=== PATIENT | female | born 1975 | race Caucasian/White ===

== ENCOUNTER → 2016-07-09 | Day surgery (SDC) | payer BC, OTHER ==
--- NOTE | 2016-07-06 11:31 | MH ---
cc: KIMBERLYN TAYLOR,MANFRED HUBBARD,KIMBERLY MULTANI,KASSIE Man MD DATE OF ADMISSION 07/09/2016 DATE OF 1975 REASON FOR ADMISSION Endometrial ablation HISTORY OF PRESENT ILLNESS The patient is a 40-year-old white female 1, para 1 status post prior tubal ligation who is having issues with dysfunctional bleeding unresponsive to medicinal therapy. Periods are once a month and increasingly heavy and painful and is having significant impact on her quality of life was wants to proceed with endometrial ablation. PAST MEDICAL HISTORY Negative for heart, lung, liver disease, hypertension, diabetes, or stroke. PAST SURGICAL HISTORY Tubal ligation GYNECOLOGIC HISTORY No STD's or abnormal Pap smears. Most recent Pap smear normal except for bacterial vaginosis which was treated. OBSTETRICAL HISTORY One vaginal delivery. FAMILY HISTORY Noncontributory SOCIAL HISTORY Does not smokes, use alcohol or drugs. Also works with [employer] ALLERGIES None REVIEW OF SYSTEMS As above. No chest orthopnea, PND. No nausea, vomiting, fever or chills. No vaginal bleeding or discharge except as noted above. The remainder of a 14-point review negative. PHYSICAL EXAM On her exam, she is afebrile, vital signs stable blood pressure is 120/70, height 5 foot 5, weight 167, BMI is 27.8. Patient is alert and oriented no acute stress. No sign of cognitive dysfunction or depression. HEENT: Within normal limits. NECK: Supple. No JVD. CHEST: Clear. HEART: Regular rate and rhythm. ABDOMEN: Soft and nontender. No hepatosplenomegaly. No CVA tenderness. PELVIC: Will be detailed under anesthesia. EXTREMITIES: Warm, skin without rashes. NEUROLOGIC: Nonfocal. No DVT signs. ASSESSMENT 1. Patient with dysfunctional bleeding unresponsive to medicinal therapy. The patient and I discussed options for management and treatment. At this point, she is a reasonable candidate for endometrial ablation. We discussed the risks, benefits and alternatives including damage to surrounding organs, bleeding, infection, failure rate of least 20% and the possibility of post tubal ablation syndrome with intermittent pelvic pain that may require further surgery in the future. 2. The patient has made an informed choice to proceed. Anticipate outpatient procedure. We will use DVT prophylaxis with sequential compression device and Ancef one gram for antibiotic prophylaxis. Anticipate outpatient procedure. MD GALE Crum/JEOVANY 11:11 AM 11:18 AM
[~2016-07-09] VITALS: Ht 165.1 cm; Wt 77.5 kg
[~2016-07-09] MED LIST: *ONDANSETRON 4 MG VIAL PERIprocedural Use ONLY ONE; ACETAMINOPHEN 1000 MG/100 ML VIAL IV ONE; DEXAMETHASONE SOD PHOS 4 MG/ML VIAL ONE; DO NOT ADM ANY ANTICOAGULANT DRUGS XX PRN; INSULIN HUMAN REGULAR 1,000 UNITS/10 ML VIAL SQ PRN; KETOROLAC TROMETHAMINE 10 MG TAB PO PRN; KETOROLAC TROMETHAMINE 30 MG/ML (IVP) VIAL IV PUSH PRN; KETOROLAC TROMETHAMINE 60 MG/2 ML (IM) VIAL IM ONE; KETOROLAC TROMETHAMINE 60 MG/2 ML (IM) VIAL IM PRN; LACTATED RINGER'S 1000 ML IV SCH; METOPROLOL TARTRATE 25 MG TAB PO PRN; METR500T10 PO; MIDAZOLAM HCL 2 MG/2 ML VIAL ONE; ONDANSETRON HCL 4 MG/2 ML VIAL IV PUSH ONE; ONDANSETRON HCL 4 MG/2 ML VIAL IV PUSH PRN; ONDANSETRON HCL 4 MG/2 ML VIAL ONE; PROPOFOL 200 MG/20 ML AMP IV ONE; SODIUM CHLORID 0.9% 500 ML IV SCH; TRIA37.53 PO; ZYRT10CA PO; ceFAZolin 1,000 MG/NS 100 ML IV SCH; fentaNYL CITRATE 250 MCG/5 ML AMP ONE
[2016-07-09 07:40] VITALS: BP 111/72; PULSE 76; RESP 16; TEMP 98.8; O2SAT 98
[2016-07-09 11:05] VITALS: BP 106/69; PULSE 76; RESP 16; TEMP 98.9; O2SAT 98
--- NOTE | 2016-07-13 20:20 | MP ---
cc: SU ALSTON,KIBMERLYN RAMIREZ,MANFRED GALARZA DATE OF SURGERY 07/09/2016 PREOPERATIVE DIAGNOSES Dysfunctional bleeding unresponsive to medicinal therapy. POSTOPERATIVE DIAGNOSES Dysfunctional bleeding unresponsive to medicinal therapy. PROCEDURE 1. Hysteroscopy D&C 2. Endometrial ablation with Novasure radiofrequency device. SURGEON Dr. Junior Bowden ANESTHESIA Laryngeal mask BLOOD LOSS 5 mL SPECIAL [employer] [place] staff x1 URINE OUTPUT 100 mL. FLUIDS 1000 mL crystalloid FINDINGS External genitalia normal. Pop Q score Az is - 1, Ap is -1, point C is -5, total vaginal length is 10, genital hiatus is six. Perineal body is four. Uterus is anteverted and flexed, approximately 10 weeks size. Uterus sounds to 8 cm. Endometrial cavity is unremarkable. Measurement for ablation device is length of cavity 5.5 cm and width is 3.8 cm SPECIMENS Endometrial curettage. COMPLICATIONS None DISPOSITION Recovery room stable COUNTS Needle and sponge correct. DRAINS None DISPOSITION Recovery room stable. PROPHYLAXIS Antibiotic prophylaxis Ancef 1 gram, DVT prophylaxis sequential compression device. TIME OUR PROCEDURE Per protocol INDICATIONS FOR PROCEDURE Patient with dysfunctional bleeding unresponsive to medicinal therapy. PROCEDURE IN DETAIL The patient was taken to the operating theater, identified, prepped and draped in fashion appropriate for planned procedure. She was in dorsal lithotomy position with careful attention paid to placement of the legs in stirrups to avoid undue stress to sensitive neurovascular structures. Above findings noted. documented. Bladder was drained. Cervix was grasped with a single-tooth tenaculum. Cervix required minimal dilation with graduated dilators. The uterus sounds to 8 cm. A 5 mm hysteroscope was placed using saline as distension medium. Above findings noted. There is lush endometrium, but no significant polyps or fibroids noted within the cavity. The curettage is obtained. Endometrial ablation device was placed without complication. Measurements as noted above. Computerized burn cycle 120 seconds uncomplicated. Repeat hysteroscopy showed a uniform burn pattern. No sign of any perforation of the uterine cavity. Procedure was concluded. The tenaculum was removed from the cervix. There was no undue bleeding from the tenaculum site. The patient reversed from anesthesia, taken to recovery room stable condition. Should patient have issues with continued bleeding, she would be a reasonable supracervical hysterectomy candidate as she has reasonably good apical support. MD GALE Crum/ /9:28 AM /7:06 PM
== END | disposition home or self-care (01) ==
LOC: HSDC 06:48
PROVIDERS: ATTEND Obstetrics & Gynecology Gynecology
DX: N93.8 Other specified abnormal uterine and vaginal bleeding (principal); N84.0 Polyp of corpus uteri
CPT/HCPCS: 00952; 58563; 88305; J0131; J0690; J1100; J1885; J2250; J2405; J3010; J7120

== ENCOUNTER 2017-01-28 04:15 | Emergency (ER) | payer BC, OTHER ==
[~2017-01-28] VITALS: Ht 162.6 cm; Wt 64.0 kg
[~2017-01-28 04:15] MED LIST changes: -*ONDANSETRON 4 MG VIAL PERIprocedural Use ONLY ONE; -ACETAMINOPHEN 1000 MG/100 ML VIAL IV ONE; -DEXAMETHASONE SOD PHOS 4 MG/ML VIAL ONE; -DO NOT ADM ANY ANTICOAGULANT DRUGS XX PRN; -INSULIN HUMAN REGULAR 1,000 UNITS/10 ML VIAL SQ PRN; -KETOROLAC TROMETHAMINE 10 MG TAB PO PRN; -KETOROLAC TROMETHAMINE 30 MG/ML (IVP) VIAL IV PUSH PRN; -KETOROLAC TROMETHAMINE 60 MG/2 ML (IM) VIAL IM ONE; -KETOROLAC TROMETHAMINE 60 MG/2 ML (IM) VIAL IM PRN; -LACTATED RINGER'S 1000 ML IV SCH; -METOPROLOL TARTRATE 25 MG TAB PO PRN; -MIDAZOLAM HCL 2 MG/2 ML VIAL ONE; -ONDANSETRON HCL 4 MG/2 ML VIAL IV PUSH ONE; -ONDANSETRON HCL 4 MG/2 ML VIAL IV PUSH PRN; -ONDANSETRON HCL 4 MG/2 ML VIAL ONE; -PROPOFOL 200 MG/20 ML AMP IV ONE; -SODIUM CHLORID 0.9% 500 ML IV SCH; -ceFAZolin 1,000 MG/NS 100 ML IV SCH; -fentaNYL CITRATE 250 MCG/5 ML AMP ONE
[2017-01-28 04:16] VITALS: BP 136/79; PULSE 75; RESP 16; TEMP 97.8; O2SAT 98
[2017-01-28] MEDS ORDERED: PRED20 PO (04:41)
[2017-01-28] MEDS ORDERED: HYDR-3533 PO (04:41)
[2017-01-28] MEDS ORDERED: predniSONE 20 MG TAB PO ONE (04:45)
--- NOTE | 2017-01-28 04:48 | PD ---
HPI Chief Complaint: Injury Time Seen by Provider: 04:23 Travel History International Travel<30 days: No Contact w/Intl Traveler<30days: No Traveled to known affect area: No History of Present Illness HPI 41-year-old [id number] white female presents to emergency Department with complaints of volar right wrist pain. She states that over the last 24 hours she's had progressive worsening pain. She states the pain radiates up into her elbow and down into her hand. The pain is worsened by flexion of the wrist. She states that even moving her fingers hurts. The patient states that she is able to extend her wrist but this is referred pain to the volar wrist. She states that her hand feels cool but denies any true temperature changes. Patient denies any trauma. No recent illness. No numbness. 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 No prior injury. No alleviating factors. PFSH Past Medical History Narrative Medical History of hypertension but resolved with weight loss Cancer: No Cardiovascular Problems: No Diabetes: No Diminished Hearing: No Endocrine: No Genitourinary: No Hepatitis: No Hiatal Hernia: No Immune Disorder: No Musculoskeletal: No Neurologic: No Psychiatric: No Reproductive: No Respiratory: No Thyroid Disease: No Tetanus Vaccination: > 5 Years Influenza Vaccination: No ?: Not LMP: 01/14/2017 Menopausal: No : 1 Para: 1 Tubal Ligation: Yes (2004) Past Surgical History Narrative Surgical Tubal ligation, uterine ablation AICD: No Gynecologic Surgery: Yes Joint Replacement: No Pacemaker: No Social History Alcohol Use: Yes (on weekends) Tobacco Use: Yes (1/2 pack per day) Substance Use: No Allergies-Medications (Allergen,Severity, Reaction): Coded Allergies: No Known Allergies (Verified , 01/28/17) Reported Meds & Prescriptions Reported Meds & Active Scripts Active Prednisone 20 Mg Tab 20 Mg PO BID 7 Days Lortab (Hydrocodone-Acetaminophen) 5-325 Mg Tab 1 Tab PO Q6H PRN Reported Triamterene-Hydrochlorothiazide 37.5-25 Mg Cap 1 Cap PO DAILY Review of Systems Except as stated in HPI: all other systems reviewed are Neg Physical Exam Narrative GENERAL: This is a well-nourished, well-developed patient, in no apparent distress. SKIN: No rashes, ecchymoses or lesions. Warm and dry. HEAD: Atraumatic. Normocephalic. EYES: PERRL, EOMI, no discharge or injection. No scleral icterus. EARS: Clear NOSE: Nasal turbinates appear normal. THROAT: Mucosa pink and moist. Airway patent. NECK: Trachea midline. supple, moves head freely. LUNGS: Clear to auscultation. CV: Regular in rhythm. ABDOMEN: Soft nontender. EXT: No clubbing cyanosis or edema. Examination of the right upper extremity reveals pain in the volar wrist. She has radiation of pain up into the palm to the base of the fingers. She also complains of pain in the distal forearm. Patient has good radial pulse. There is no erythema, warmth, coolness, edema. She has intact sensation with good Refill. No pain on the dorsum of the hand and wrist. She does complain of point tenderness over the mid volar wrist. There is right hand and wrist when compared to the left. They both have normal color, temperature, sensation and pulses. Data Data Last Documented VS Vital Signs Date Time Temp Pulse Resp B/P (MAP) Pulse Ox O2 Delivery O2 Flow Rate FiO2 01/28/17 04:27 20 Room Air 01/28/17 04:16 97.8 75 136/79 (98) 98 Orders Orders Splint Or Brace Apply/Monitor (01/28/17 04:39) Prednisone (Deltasone) (01/28/17 04:45) Acetamin-Hydrocod 325-5 Mg ([place] 5-325 (01/28/17 05:00) MDM Medical Decision Making Medical Screen Exam Complete: Yes Emergency Medical Condition: Yes Medical Record Reviewed: Yes Differential Diagnosis Differential diagnoses: Sprain, strain, tendinitis, vascular, nerve injury Narrative Course Patient is given prednisone 60 mg a Lortab 5 milligram by mouth. Patient states that she had drove to the ER today. Patient is placed in a Velcro wrist splint for comfort. This is a flexor tendinitis Diagnosis Primary Impression: right wrist flexor tendinitis Patient Instructions: General Instructions Departure Forms: Tests/Procedures, Work Release Special Instructions: No work 2 days. Then no use of the right hand at work for the next week. Additional Instructions: Rest. Splint. Elevation. Ice. Lortab for severe pain. 3 Advil every 6 hours. Prednisone. Follow-up with your doctor in next 3-7 days. Follow-up with orthopedics in next 3-7 days. Return to the ER for any problems. Med/Other Pt SpecificInfo: Prescription(s) given Scripts Prednisone (Prednisone) 20 Mg Tab 20 MG PO BID for 7 Days, #14 TAB 0 Refills Prov: Francesca Lai MD 01/28/17 Hydrocodone-Acetaminophen (Lortab) 5-325 Mg Tab 1 TAB PO Q6H Y for PAIN, #20 TAB 0 Refills Prov: Francesca Lai MD 01/28/17 Disposition: 01 DISCHARGE HOME Condition: Stable Kennedy Sequeira Jan 28, 2017 04:48
[2017-01-28] MEDS ORDERED: ACETAMINOPHEN/HYDROcodone 325 MG/5 MG TAB PO ONE (05:00)
== END 2017-01-28 05:33 | disposition home or self-care (01) ==
LOC: NEPD 04:15
DX: M77.9 Enthesopathy, unspecified (principal)
CPT/HCPCS: 99284; J7512; L3908